=== PATIENT | male | born 1955 ===

== ENCOUNTER 2024-06-29 11:11 | Day surgery (SDC) | payer OTHER ==
--- NOTE | 2024-06-26 11:12 | RAD REPORT ---
EXAM: Chest Pa And Lat (2 Views) HISTORY: 68 years Male Pre-op pending heart catheterization COMPARISON: None. FINDINGS: LUNGS/PLEURA: The lungs are clear. No pleural effusions or pneumothorax. No pulmonary edema. Linear s carring at the right upper lung. Likely emphysema. CARDIAC/MEDIASTINUM: The cardiac silhouette is within normal limits. UPPER ABDOMEN: No significant abnormality. BONES: No acute abnormality. LINES/TUBES/OTHER: N/A IMPRESSION: No evidence of acute cardiopulmonary disease.
[2024-06-26 11:14] LABS: PT Prothrombin Time 10.8 SECONDS (10-13.0); PTT, Activated Partial Thromb 32.1 SECONDS (27.2-37.4); Protime INR 0.94
[2024-06-29] MEDS ORDERED: NA CHLORIDE 0.9% 500 ML ONE (11:18)
[2024-06-29] MEDS ORDERED: LIDOCAINE 1% 20 ML MDV ONE (11:20)
[2024-06-29] MEDS ORDERED: HEPA 1000U/500MLS 2,000 UNIT/1,000 ML BAG IV ONE (11:20)
[2024-06-29] MEDS ORDERED: VERAPAMIL HCL 10 MG/4 ML VIAL IV ONE (11:21)
[2024-06-29] MEDS ORDERED: HEPARIN 5000 UNIT/ML 1 ML VIAL ONE (11:21)
[2024-06-29 11:41] VITALS: O2SAT 100
[2024-06-29] MEDS ORDERED: ATROPINE SULF 1 MG/10 ML SYR IV ONE (11:42)
[2024-06-29] MEDS ORDERED: HEPARIN 10,000 UNIT/10 ML VIAL IV ONE (11:42)
[2024-06-29] MEDS ORDERED: ASPIRIN 325 MG TAB ONE (11:44)
[2024-06-29] MEDS ORDERED: TICAGRELOR 90 MG TABLET PO ONE (11:44)
[2024-06-29] MEDS ORDERED: CLOPIDOGREL 75 MG TABLET ONE (11:44)
--- NOTE | 2024-06-29 12:10 | EKG ---
Test Date: 2024-06-26 Test Time: 10:43:50 Authorization Specialist: LEE MEASUREMENT RESULTS: Intervals: Rate: 62 MS: 132 QRSD: 96 QT: 404 QTc: 410 [place]: P: 72 MS: 132 QRS: 79 T: 54 INTERPRETIVE STATEMENTS: Normal sinus rhythm Normal ECG Compared to ECG 06/21/2006 21:23:05 Sinus bradycardia no longer present Myocardial infarct finding no longer present Electronically Signed On 06-29-24 12:03:02 CDT by Sahil Feng
[2024-06-29] MEDS ORDERED: FENTANYL CITR 100 MCG/2 ML ONE (12:34)
[2024-06-29] MEDS ORDERED: MIDAZOLAM HCL 2 MG/2 ML INJ ONE (12:34)
--- NOTE | 2024-06-29 15:03 | OP ---
Date of Procedure: 06/29/2024 Surgeon: TOBY SOL Procedures Performed: 1. Selective coronary angiogram. 2. Left heart catheterization. 3. PCI of severe in-stent restenosis of the mid LAD, I used 3.5 x 24 mm Synergy drug-eluting stent. Indication: Chest pain with grossly abnormal stress test. Access: Right radial artery 6-[place] closed with TR band. Complications: None. Bleeding: Less than 50 mL. Sedation: None due to low blood pressure. Description Of Procedure: After risks, benefits, and alternatives were explained, the patient agreed to procedure and signed informed consent. The patient was brought into cardiac catheterization labo [facility], prepped and draped in usual sterile fashion. Then, I accessed right radial artery using pedi atric micropuncture kit, placed 6-[place] slender sheath. Took 5-[place] 4.0 catheter over a J-w dominic into the aortic root across the aortic valve, measured the LVEDP. Pullback did not record any gr adient. I engaged the left main, took standard views and in the RCA, took standard views and then I removed the catheter and the sheath and placed TR band with good hemostasis. Findings: 1. Left main is large and normal. 2. LAD; proximal segment large and normal. Mid segment, there is a stent and there are multiple area s of severe in-stent restenoses ranging between 70% and 80%, status post successful PCI, see below, a nd the mid LAD has a 30% to 40% stenosis focal, post stent. 3. Left circumflex is normal. 4. RCA is normal. 5. LVEDP is borderline at 11 mmHg. Intervention Details: We gave systemic heparin to assure ACT level above 250. Patient is already on Plavix and he was loaded with aspirin and then took EBU 3.5 guide into aortic root. After we gave s ystemic heparin, took Runthrough wire into the LAD, placed it distally, and then using a 3.5 20 mm NC balloon, I pre-dilated the lesion, but not completely expanded this. I took a 3.5 [place] cutting balloon and did cutting of the angioplasty through the whole stent and the stent expanded very well and then I took a 3.5 x 24 mm Synergy drug-eluting stent to overlap the first stent, excellent expans ion, 0% residual stenosis, SAUL-3 flow, at the end. Wire was removed. Final angiogram was satisfact ory and then I removed the guide and the sheath, placed TR band with good hemostasis. Findings: 1. Left main is normal. 2. LAD; severe in-stent restenoses in the mid LAD, status post successful PCI as above. There is foc al stenosis in the mid to distal LAD that is 30% to 40% stenosis. 3. Left circumflex is normal. 4. RCA is normal. 5. Normal LVEDP at 10 mmHg. Conclusion: Severe mid LAD in-stent restenosis, status post successful PCI as above. SR/MODL Voice ID: [id number] Report ID: [id number]
[2024-06-29 16:56] VITALS: BP 124/78
== END 2024-06-29 16:55 | disposition home or self-care (01) ==
LOC: CCL 11:11
PROVIDERS: ATTEND Internal Medicine
DX: T82.855A Stenosis of coronary artery stent, initial encounter (principal); I25.10 Atherosclerotic heart disease of native coronary artery without angina pectoris; I10 Essential (primary) hypertension; E78.5 Hyperlipidemia, unspecified; E03.9 Hypothyroidism, unspecified; Z79.02 Long term (current) use of antithrombotics/antiplatelets; Z79.899 Other long term (current) drug therapy; Z88.0 Allergy status to penicillin; Z82.49 Family history of ischemic heart disease and other diseases of the circulatory system
CPT/HCPCS: 36415; 71046; 76937; 85347; 85610; 85730; 93005; 93458; C1725; C1893; C9600; J0461; J1644; J2003; J2250; J3010; J7040; Q9967